=== PATIENT | female | born 1980 | race Hispanic/Latino ===

== ENCOUNTER 2016-11-11 11:58 | Observation (INO) | payer SELFPAY ==
[2016-11-11 13:18] LABS: ALCOHOL SERUM < 10 mg/dl (0-10)
--- NOTE | 2016-11-11 13:39 | C.PDOC ---
"History Of Present Illness 35-year-old female, presents to the emergency department with complaints of possible intoxication. Patient appeared under the influence on street, and was picked up by EMS, Patient states she does not feel well. All other Hx is limited due to intox. Time Seen by Provider: 11/11/16 12:07 Chief Complaint (Nursing): Substance Abuse History Per: Patient, EMS History/Exam Limitations: intoxication (questionable) Current Symptoms Are (Timing): Still Present Past Medical History Reviewed: Historical Data, Nursing Documentation, Vital Signs Vital Signs: Last Vital Signs Temp 97.6 F 11/11/16 13:45 Pulse 70 11/11/16 13:45 Resp 18 11/11/16 13:45 BP 110/70 11/11/16 13:45 Pulse Ox 99 11/11/16 18:05 Family History: States: No Known Family Hx - Social History Hx Alcohol Use: Yes Hx Substance Use: Yes (Multi substance heroin, cocaine) - Immunization History Hx Tetanus Toxoid Vaccination: No Hx Influenza Vaccination: No Hx Pneumococcal Vaccination: No Review Of Systems Review Of Systems: ROS cannot be obtained secondary to pt's inabilty to answer questions. Respiratory: Negative for: Shortness of Breath Gastrointestinal: Negative for: Vomiting Physical Exam - Physical Exam Appears: Non-toxic, No Acute Distress, Other (Sleepy) Skin: Warm, Dry, No Rash Head: Atraumatic, Normacephalic Eye(s): bilateral: Other (Dilates 5-6mm, but reactive) Nose: Normal Oral Mucosa: Moist Neck: Normal ROM, Other (No evidence of trauma) Cardiovascular: Rhythm Regular, No Murmur Respiratory: Normal Breath Sounds, No Accessory Muscle Use Gastrointestinal/Abdominal: Soft, No Tenderness Extremity: Normal ROM Neurological/Psych: Normal Speech ED Course And Treatment - Laboratory Results Result Diagrams: 11/11/16 13:47 11/11/16 12:50 O2 Sat by Pulse Oximetry: 99 (ra) Pulse Ox Interpretation: Normal - CT Scan/US CT HEAD Other Rad Studies (CT/US): Read By Radiologist, Radiology Report Reviewed CT/US Interpretation: [facility]. [facility]. Preliminary Radiology Report Call: [phone]. assistance Online chat: [email or web address] Name: LYNDSAY JERONIMO Age: 35Years F Date: 11/11/2016. Requesting Physician: ASHLEY HORN : 1980. [facility] Procedure Ordered As Accession Number of Images. CT HEAD WO CT HEAD W O CONTRAST [id number]. Provided Clinical History: DROWSY, AMS. Page 1 of 2. EXAM: CT Head Without Intravenous Contrast. CLINICAL HISTORY: 35 years old, female; Signs and symptoms; Altered mental status/memory loss; Confusion or. disorientation; Additional info: Drowsy, AMS. TECHNIQUE: Axial computed tomography images of the head/brain without intravenous contrast. This CT exam. was performed using one or more of the following dose reduction techniques: automated exposure. control, adjustment of the mA and/or kV according to patient size, and/or use of iterative. reconstruction technique. COMPARISON: No relevant prior studies available. FINDINGS: Brain: There is mild diffuse cerebral volume loss, out of proportion to age. The brain is otherwise. unremarkable. Normal bae-white matter differentiation is present, without acute hemorrhage, or. mass. Ventricles: Unremarkable. No ventriculomegaly. Bones/joints: Right nasal bone deformity is seen. Likely chronic injury. Soft tissues: Unremarkable. Sinuses: Unremarkable as visualized. No acute sinusitis. Mastoid air cells: Unremarkable as visualized. No mastoid effusion. IMPRESSION: No acute intracranial process is seen. No signs of mass, infarction, bleed. Thank you for allowing us to participate in the care of your patient. RONDANYALYNDSAY PHILLIP | Preliminary Radiology Report. ASSISTANT MEDIA PLANNER (QA) DISCREPANCY? If there is a discrepancy between the preliminary and final interpretation, please notify [facility] via [email or web address]. If you do not have access to our QA portal, call our QA team at [phone]. CONFIDENTIALITY STATEMENT. This report is intended only for the use of the referring physician, and only in accordance with law, If you received this in error, call [phone]. Page 2 of 2. Dictated and Authenticated by: David Grewal MD. 11/11/2016 5:43 PM Eastern Time ([place] & [place]) Progress Note: 1:35PM- Patient's ETOH level (-), UDS pending. Patient still drowsy and appears altered or under influence. Will add blood work, CT head, EKG for further eval. 5:45PM- Patient sleeping on stretcher, easily arousable to verbal stimuli. UDS (+) for opiates, cocaine, cannabis. ETOH (-). Patient pending sobriety. No detox beds are available (confirmed by crisis counselor). Disposition - Disposition Disposition Time: 19:00 Condition: STABLE - Clinical Impression Clinical Impression: Polysubstance abuse - Scribe Statement The provider has reviewed the documentation as recorded by the Scribe (Karon Barrow) All medical record entries made by the Scribe were at my direction and personally dictated by me. I have reviewed the chart and agree that the record accurately reflects my personal performance of the history, physical exam, medical decision making, and the department course for this patient. I have also personally directed, reviewed, and agree with the discharge instructions and disposition. Physician Patient Turnover Patient Signed Over To: Marcus Moore Handoff Comments: pending sobriety"
[2016-11-11 13:55] LABS: CHLORIDE 103 mmol/L (98-107); SODIUM 139 mmol/L (132-148)
[2016-11-11 13:58] LABS: ALKALINE PHOSPHATASE 43 U/L (38-126); ALT/SGPT 22 U/L (9-52); AST/SGOT 18 U/L (14-36); BILIRUBIN,TOTAL 0.7 mg/dL (0.2-1.3); BLOOD UREA NITROGEN 6 mg/dL (7-17); CARBON DIOXIDE 24 mmol/L (22-30); GFR AFRICAN-AMERICAN > 60; GLUCOSE,RANDOM 134 mg/dL (65-105); TOTAL PROTEIN 6.7 g/dL (6.3-8.3)
[2016-11-11 13:59] LABS: CALCIUM 8.7 mg/dl (8.6-10.4)
[2016-11-11 14:02] LABS: BASO % 0.3 % (0.0-2.0); EOS # 0.1 K/uL (0.0-0.7); EOS % 1.2 % (0.0-4.0); HEMATOCRIT 39.1 % (34.0-47.0); LYMPH # 1.7 K/uL (1.0-4.3); LYMPH % 23.2 % (20.0-40.0); MEAN CELL VOLUME 82.8 fL (81.0-99.0); MEAN CORPUSCULAR HEMOGLOBIN 28.1 pg (27.0-31.0); MEAN CORPUSCULAR HGB CONC 33.9 g/dL (33.0-37.0); MEAN PLATELET VOLUME 8.6 fL (7.2-11.7); MONO # 0.2 K/uL (0.0-0.8); MONO % 3.4 % (0.0-10.0); NRBC % 0.1 % (0.0-2.0); RED CELL DISTRIBUTION WIDTH 13.9 % (11.5-14.5); WHITE BLOOD COUNT 7.1 K/uL (4.8-10.8)
[2016-11-11 15:10] LABS: RBC URINE 2 /hpf (0-3); URINE BILIRUBIN NEGATIVE (NEGATIVE); URINE BLOOD NEGATIVE (NEGATIVE); URINE COLOR Yellow (YELLOW); URINE GLUCOSE (UA) NORMAL (Normal); URINE KETONE TRACE mg/dL (NEGATIVE); URINE LEUKOCYTE ESTERASE 1+ Leu/uL (Negative); URINE PROTEIN NEGATIVE (NEGATIVE); URINE UROBILINOGEN NORMAL mg/dL (0.2-1.0); WBC URINE 9 /hpf (0-5)
[2016-11-11 15:41] VITALS: O2SAT 99
--- NOTE | 2016-11-11 17:23 | CT ---
PROCEDURE: CT HEAD WITHOUT CONTRAST. HISTORY: DROWSY, AMS COMPARISON: None available. TECHNIQUE: Axial computed tomography images were obtained through the head/brain without intravenous contrast. Radiation dose: Total exam DLP = 985 mGy-cm. This CT exam was performed using one or more of the following dose reduction techniques: Automated exposure control, adjustment of the mA and/or kV according to patient size, and/or use of iterative reconstruction technique. FINDINGS: HEMORRHAGE: No intracranial hemorrhage. BRAIN: Intrinsic density density above and below the tentorium throughout the bae and white matter structures is unremarkable including the brainstem and cerebellum. The midline brain appears normal throughout. VENTRICLES: Unremarkable. No hydrocephalus. No suspicious extra-axial fluid collection. Sulci and cisterns appear within normal limits throughout. CALVARIUM: Unremarkable. PARANASAL SINUSES: Unremarkable as visualized. No significant inflammatory changes. MASTOID AIR CELLS: Unremarkable as visualized. No inflammatory changes. OTHER FINDINGS: None. IMPRESSION: Normal CT of the Head. Follow-up CT or MRI are available if clinically warranted.
[2016-11-11 18:53] VITALS: BP 118/66; PULSE 66; RESP 20; TEMP 98
== END 2016-11-11 19:01 | disposition home or self-care (01) ==
LOC: C.ER 11:58 → C.9OBSV 14:50
PROVIDERS: ADMIT Emergency Medicine; ATTEND Emergency Medicine
DX: F14.10 Cocaine abuse, uncomplicated (principal); F11.10 Opioid abuse, uncomplicated; F12.10 Cannabis abuse, uncomplicated
CPT/HCPCS: 36415; 70450; 80053; 81001; 84702; 85025; 99285; G0378; G0480